=== PATIENT | male | born 1975 | race Hispanic/Latino ===

== ENCOUNTER 2017-02-19 19:58 | Emergency (ER) | payer OTHER ==
[2017-02-19 20:14] VITALS: BP 135/82; PULSE 92; RESP 16; TEMP 98.2; O2SAT 100
--- NOTE | 2017-02-19 21:19 | ED PDOC ---
HPI: CCC, URI, Sore Throat Time Seen by Provider: 02/19/17 20:27 Chief Complaint (Nursing): ENT Problem Chief Complaint (Provider): left ear pain History Per: Patient History/Exam Limitations: no limitations Onset/Duration Of Symptoms: Days (1 week) Current Symptoms Are (Timing): Still Present Additional History Per: Patient Additional Complaint(s): 41 y/o male presents with left ear pain x 1 week. Patient notes nasal congestion ; was seen by PMD today and had wax cleaned from ear and advised to take Sudafed. Patient notes pain to have worsened tonight, with associated drainage from ear. Denies fever, nausea/vomiting, changes with hearing. Past Medical History Reviewed: Historical Data, Nursing Documentation, Vital Signs Vital Signs: Last Vital Signs Temp 98.2 F 02/19/17 20:10 Pulse 92 H 02/19/17 20:10 Resp 16 02/19/17 20:10 BP 135/82 02/19/17 20:10 Pulse Ox 100 02/19/17 21:19 - Medical History PMH: No Chronic Diseases - Surgical History Surgical History: No Surg Hx - Family History Family History: States: Unknown Family Hx - Home Medications Home Medications: Ambulatory Orders Medication Instructions Recorded Amoxicillin/Clavulanate [Augmentin 1 tab PO Q12 #19 tab 02/19/17 875 MG-125 MG] Ibuprofen [Motrin Tab] 1 tab PO Q6 PRN #20 tab 02/19/17 Ofloxacin Otic 0.3% [Floxin 0.3% 5 drop OT BID #1 bottle 02/19/17 Otic Soln] - Allergies Allergies/Adverse Reactions: Allergies Allergy/AdvReac Type Severity Reaction Status Date / Time No Known Allergies Allergy Verified 02/19/17 20:10 Review of Systems ROS Statement: Except As Marked, All Systems Reviewed And Found Negative ENT: Positive for: Ear Pain (left) Physical Exam - Reviewed Nursing Documentation Reviewed: Yes Vital Signs Reviewed: Yes - Physical Exam Appears: Positive for: Well, Non-toxic, No Acute Distress Head Exam: Positive for: ATRAUMATIC, NORMAL INSPECTION, NORMOCEPHALIC Eye Exam: Positive for: PERRL ENT: Positive for: TM Is/Are (Left TM obscured by wax/discharge. Right TM clear. No canal edema b/l. No tragus or mastoid tenderness b/l) Cardiovascular/Chest: Positive for: Regular Rate, Rhythm Respiratory: Positive for: Normal Breath Sounds Gastrointestinal/Abdominal: Positive for: Normal Exam Extremity: Positive for: Normal ROM Neurologic/Psych: Positive for: Alert, Oriented - ECG O2 Sat by Pulse Oximetry: 100 - Progress ED Course And Treament: Curette used to removed some amount of wax/discharge; TM appears rupted. Patient educated on findings, discharged with rx Augmentin, Ofloxacin, ibuprofen. Advised follow up PMD/ENT. Return to ED for worsening/concerning symptoms. Disposition - Clinical Impression Clinical Impression: Otitis media, acute with perforation of eardrum - Patient ED Disposition Is Patient to be Admitted: No Counseled Patient/Family Regarding: Studies Performed, Diagnosis, Need For Followup, Rx Given - Disposition Disposition: Routine/Home Disposition Time: 21:48 Condition: STABLE Prescriptions: Amoxicillin/Clavulanate [Augmentin 875 MG-125 MG] 1 tab PO Q12 #19 tab Ibuprofen [Motrin Tab] 1 tab PO Q6 PRN #20 tab PRN Reason: Pain, Moderate (4-7) Ofloxacin Otic 0.3% [Floxin 0.3% Otic Soln] 5 drop OT BID #1 bottle Instructions: Otitis Media (ED), Ruptured Eardrum (ED)
[2017-02-19] MEDS ORDERED: Amoxicillin-Clav 875-125 mg Tab PO ONE (21:35)
[2017-02-19] MEDS ORDERED: Amoxicillin-Clav 875-125 mg Tab PO STA (21:39)
== END 2017-02-19 21:53 | disposition home or self-care (01) ==
LOC: H.ER 19:58
DX: H72.92 Unspecified perforation of tympanic membrane, left ear (principal)